=== PATIENT | female | born 1960 | race African-American/Black ===

== ENCOUNTER 2018-12-02 10:49 | Outpatient (CLI) | payer BC ==
--- NOTE | 2018-12-02 13:22 | MRI ---
MRI Upper Ext Jt Lt WO Con History: s46.012a traumatic complete tear of left rotator cuff Comparison: None. Findings: Biceps tendon: There is perching of the biceps tendon upon the lesser tuberosity. Tear of t he superior glenohumeral ligament and transverse humeral ligament. The intra-articular tendon is severely tendon chronic with high-grade tearing. Labrum: Circumferential labral tearing. Cartilage: The glenoid cartilage is relatively normal. There is high-grade chondral delamination sarah g the superior articular surface of the humeral head which has abnormal articulation with the undersurface acromion. Rotator cuff: High-grade that tendinosis and interstitial tearing subscapularis. Full-thickness full width supraspinatus tendon tear. High-grade undersurface partial tear of the anterior one half interspace tendon with interstitial type delamination. Teres minor is intact. Muscles: High-grade atrophy of the supraspinatus and infraspinous muscles with edema tracking along t he expected is most likely denervation in nature. No significant atrophy of the subscapularis. Deltoid musculature is normal. Bones: Normal glenoid version. Moderate degenerative disease acromioclavicular joint. Large erosions of the footprint greater tuberosity. Soft tissues: Large subacromial/subdeltoid bursa effusion. There is synovitis of the axillary pouch a nd subacromial bursa. Is also debris and small bodies within the subscapularis bursa. Impression: 1. Full-thickness full width supraspinatus tendon tear from the footprint retracted to the glenohumer al joint, chronic in nature with greater than 50% muscle atrophy. 2. Perching of the biceps tendon upon the lesser tuberosity through tears of the transverse humeral l igament and superior glenohumeral ligament portion of the biceps vickey. There is severe tendinosis in the high-grade tearing just proximal to the intertubercular groove. 3. High-grade undersurface tearing and interstitial tearing throughout the infraspinatus tendon with 50% atrophy and denervation edema. 4. Large subacromial/subdeltoid bursa effusion containing debris and synovitis. 5. Abnormal undersurface remodeling of the acromion due to articulation with the humeral head. 6. High-grade chondral examination of the craniad humeral head otherwise the glenoid cartilage is nor mal.
== END 2018-12-02 10:50 | disposition home or self-care (01) ==
LOC: SCSMRI 10:49
PROVIDERS: ATTEND Orthopaedic Surgery
DX: S46.012A Strain of muscle(s) and tendon(s) of the rotator cuff of left shoulder, initial encounter (principal); S42.122A Displaced fracture of acromial process, left shoulder, initial encounter for closed fracture